=== PATIENT | female | born 1985 | race Caucasian/White ===

== ENCOUNTER → 2017-05-08 | Outpatient (CLI) | payer MEDICAID | LOC: BRMIMAGING 10:33 | PROVIDERS: ATTEND Physician Assistant Medical | DX: M25.532 Pain in left wrist (principal) | CPT/HCPCS: 73110-PO ==

== ENCOUNTER → 2017-05-23 | Outpatient (CLI) | payer MEDICAID | LOC: FIMAGING 16:13 | PROVIDERS: ATTEND Physician Assistant Medical | DX: M12.832 Other specific arthropathies, not elsewhere classified, left wrist (principal) ==